=== PATIENT | male | born 1960 | race Caucasian/White ===

== ENCOUNTER 2016-09-16 15:41 | Emergency (ER) | payer OTHER ==
[2016-09-16 15:50] VITALS: BP 148/99; PULSE 78; RESP 16; TEMP 98.3; O2SAT 97
[2016-09-16] MEDS ORDERED: LISI-515 PO (15:56)
[2016-09-16 17:07] LABS: AUTOMATED NEUTROPHIL # 5.6 TH/MM3 (1.8-7.7); BASOPHIL # 0.2 TH/MM3 (0-0.2); BASOPHIL % 1.9 % (0.0-2.0); EOSINOPHIL # 0.1 TH/MM3 (0-0.4); EOSINOPHIL % 0.6 % (0.0-4.0); HEMATOCRIT 45.9 % (39.0-51.0); HEMO FLAGS DIFF FINAL; LYMPH % 23.1 % (9.0-44.0); LYMPHOCYTE # 2.1 TH/MM3 (1.0-4.8); MEAN CORPUSCULAR HEMOGLOBIN 28.9 PG (27.0-34.0); MEAN CORPUSCULAR HGB CONC 34.4 % (32.0-36.0); MONO % 12.3 % (0.0-8.0); NEUT % 62.1 % (16.0-70.0); PLATELET COUNT 197 TH/MM3 (150-450); RED BLOOD COUNT 5.46 MIL/MM3 (4.50-5.90); RED CELL DISTRIBUTION WIDTH 13.8 % (11.6-17.2)
[2016-09-16 17:21] LABS: ANION GAP 9 MEQ/L (5-15); AST (GOT) 11 U/L (15-37); BICARBONATE 26.1 MEQ/L (21.0-32.0); BLOOD UREA NITROGEN 13 MG/DL (7-18); CHLORIDE 100 MEQ/L (98-107); GLOMERULAR FILTRATION RATE 104 ML/MIN (>89); POTASSIUM 3.5 MEQ/L (3.5-5.1); SODIUM (NA) 135 MEQ/L (136-145)
[2016-09-16 17:25] LABS: ALKALINE PHOSPHATASE 81 U/L (45-117); ALT (GPT) 28 U/L (12-78); TOTAL BILIRUBIN ADULT 0.6 MG/DL (0.2-1.0)
--- NOTE | 2016-09-16 17:30 | RADRPT ---
EXAM DATE/TIME: 09/16/2016 17:22 [place] COMPARISON: No previous studies available for comparison. INDICATIONS : Facial droop. RADIATION DOSE: 42.16 CTDIvol (mGy) MEDICAL HISTORY : Hypertension. SURGICAL HISTORY : None. ENCOUNTER: Initial ACUITY: 1 day PAIN SCALE: 0/10 LOCATION: cranial TECHNIQUE: Multiple contiguous axial images were obtained of the head. Using automated exposure control and adj ustment of the mA and/or kV according to patient size, radiation dose was kept as low as reasonably a chievable to obtain optimal diagnostic quality images. FINDINGS: CEREBRUM: The ventricles are normal for age. No evidence of midline shift, mass lesion, hemorrhage or acute in farction. No extra-axial fluid collections are seen. POSTERIOR FOSSA: The cerebellum and brainstem are intact. The 4th ventricle is midline. The cerebellopontine angle i s unremarkable. EXTRACRANIAL: The visualized portion of the orbits is intact. SKULL: The calvaria is intact. No evidence of skull fracture. CONCLUSION: Negative noncontrast CT brain. Juan Dudley MD on September 16, 2016 at 17:27 Board Certified Radiologist. This report was verified electronically.
--- NOTE | 2016-09-16 17:45 | PD ---
HPI Chief Complaint: Neuro Symptoms/ Deficits Time Seen by Provider: 15:47 Travel History International Travel<30 days: No Contact w/Intl Traveler<30days: No Traveled to known affect area: No History of Present Illness HPI This is a 56-year-old male inmate brought in by the correctional facility guards for right sided facial droop. The patient states he was sprinting pain behind his right ear and above his ear 2 days ago. He states he woke up this morning with facial droop and difficulty closing his eye. The patient denies any weakness of his extremities. He did state that he thought he felt some numbness to his leg earlier but denies weakness. Denies any previous history of stroke. He does have a history of hypertension. There are no other complaints time my examination. [facility] Past Medical History Hypertension: Yes Past Surgical History Surgical History: No Previous Surgery Social History Alcohol Use: No Tobacco Use: Yes Substance Use: No Allergies-Medications (Allergen,Severity, Reaction): Coded Allergies: No Known Allergies (Unverified , 09/16/16) Reported Meds & Prescriptions Reported Meds & Active Scripts Active Valacyclovir (Valacyclovir HCl) 1 Gm Tab 1,000 Mg PO TID Prednisone 20 Mg Tab 60 Mg PO DAILY Reported Lisinopril Unknown Strength Tab Unknown Dose PO DAILY Review of Systems Except as stated in HPI: all other systems reviewed are Neg Eyes: Positive: Tearing, No: Blurred Vision, Visual changes (right eye) HENT: Positive: Other (right sided facial pain. Patient also complaining of pain above his right ear and behind his right ear.), No: Headaches, Lightheadedness Cardiovascular: No: Chest Pain or Discomfort, Irregular Rhythm Respiratory: No: Cough Gastrointestinal: No: Nausea, Vomiting, Abdominal Pain Musculoskeletal: No: Myalgias, Arthralgias, Weakness, Pain Neurologic: Positive: Focal Abnormalities (face droop), Other (right sided facial droop), No: Weakness, Syncope, Headache, Slurred Speech Physical Exam Narrative GENERAL: Well-developed well-nourished male with obvious right sided facial droop. SKIN: Focused skin assessment warm/dry. HEAD: Atraumatic. Normocephalic. EYES: Pupils equal and round. Patient does have a right eyelid droop. ENT: No nasal bleeding or discharge. Mucous membranes pink and moist. Patient has right lip droop. The patient has a vesicular rash to the right temporal scalp just above the right ear. On fluorescein staining of the right eye, there are no dendritic lesions appreciated. There is no uptake. There was no nasal lesions. On examination of his bilateral tympanic membranes, there was no evidence of vesicular lesions noted. NECK: Trachea midline. Supple. CARDIOVASCULAR: Regular rate and rhythm. No murmur appreciated. RESPIRATORY: No accessory muscle use. Clear to auscultation. Breath sounds equal bilaterally. GASTROINTESTINAL: Abdomen soft, non-tender, nondistended. Hepatic and splenic margins not palpable. MUSCULOSKELETAL: No obvious deformities. No clubbing. No cyanosis. No edema. NEUROLOGICAL: Awake and alert. Right sided facial droop with no for had sparing. Extremity motor and sensory exam are within normal limits. PSYCHIATRIC: Appropriate mood and affect; insight and judgment normal. Data Data Last Documented VS Vital Signs Date Time Temp Pulse Resp B/P Pulse Ox O2 Delivery O2 Flow Rate FiO2 09/16/16 16:20 Room Air 09/16/16 15:50 98.3 78 16 148/99 97 Orders Complete Blood Count With Diff (09/16/16 16:18) Comprehensive Metabolic Panel (09/16/16 16:18) Ct Brain W/O Iv Contrast(Rout) (09/16/16 16:18) Iv Access Insert/Monitor (09/16/16 16:18) Ecg Monitoring (09/16/16 16:18) Oximetry (09/16/16 16:18) Labs Laboratory Tests Test 09/16/16 16:10 White Blood Count 9.0 TH/MM3 Red Blood Count 5.46 MIL/MM3 Hemoglobin 15.8 GM/DL Hematocrit 45.9 % Mean Corpuscular Volume 84.0 FL Mean Corpuscular Hemoglobin 28.9 PG Mean Corpuscular Hemoglobin 34.4 % Concent Red Cell Distribution Width 13.8 % Platelet Count 197 TH/MM3 Mean Platelet Volume 8.8 FL Neutrophils (%) (Auto) 62.1 % Lymphocytes (%) (Auto) 23.1 % Monocytes (%) (Auto) 12.3 % Eosinophils (%) (Auto) 0.6 % Basophils (%) (Auto) 1.9 % Neutrophils # (Auto) 5.6 TH/MM3 Lymphocytes # (Auto) 2.1 TH/MM3 Monocytes # (Auto) 1.1 TH/MM3 Eosinophils # (Auto) 0.1 TH/MM3 Basophils # (Auto) 0.2 TH/MM3 CBC Comment DIFF FINAL Differential Comment Sodium Level 135 MEQ/L Potassium Level 3.5 MEQ/L Chloride Level 100 MEQ/L Carbon Dioxide Level 26.1 MEQ/L Anion Gap 9 MEQ/L Blood Urea Nitrogen 13 MG/DL Creatinine 0.78 MG/DL Estimat Glomerular Filtration 104 ML/MIN Rate Random Glucose 129 MG/DL Calcium Level 8.9 MG/DL Total Bilirubin 0.6 MG/DL Aspartate Amino Transf 11 U/L (AST/SGOT) Alanine Aminotransferase 28 U/L (ALT/SGPT) Alkaline Phosphatase 81 U/L Total Protein 7.7 GM/DL Albumin 3.9 GM/DL MDM Medical Decision Making Medical Screen Exam Complete: Yes Emergency Medical Condition: Yes Interpretation(s) Last [address] 09/16/16 1618 Signed Impressions: Service Date/Time: Friday, September 16, 2016 17:22 - CONCLUSION: Negative noncontrast CT brain. Juan Dudley MD Differential Diagnosis Hathaway's palsy versus TIA versus CVA Narrative Course 56-year-old male who presents with right sided facial droop. The patient 2 days ago noticed pain in his right posterior and superior auricular area. The patient has a vesicular rash noted to his right scalp above his ear. TMs show no vesicular lesions. The tip of his nose shows no vesicular lesions. Fluorescein staining shows no uptake in his right eye. The patient has no sparing of his forehead with a facial droop. This is Hathaway's palsy clinically. Since he did have questionable numbness to his right leg, a CT scan was ordered which shows no evidence of acute process. He will be treated with prednisone and valacyclovir. Diagnosis Primary Impression: Hathaway's palsy Additional Impression: History of hypertension Additional Instructions: Saline eyedrops to right eye for dryness. Follow up with neurologist if symptoms persist. Med/Other Pt SpecificInfo: Prescription(s) given Scripts Valacyclovir 1 Gm Tab1,000 Mg PO TID #21 TAB Ref 0 Prov:Yuniel Palma MD 09/16/16 Prednisone 20 Mg Tab60 Mg PO DAILY #21 TAB Ref 0 Prov:Yuniel Palma MD 09/16/16 Disposition: 01 DISCHARGE HOME Condition: Stable Yuniel Palma MD Sep 16, 2016 17:45
[2016-09-16] MEDS ORDERED: PRED20 PO (17:47)
[2016-09-16] MEDS ORDERED: VALA1TAB PO (17:47)
[2016-09-16] MEDS ORDERED: IBUPROFEN 800 MG TAB PO ONE (18:00)
== END 2016-09-16 18:16 | disposition home or self-care (01) ==
LOC: NEPE 15:41
DX: G51.0 Bell's palsy (principal); R51 Headache; R20.0 Anesthesia of skin; R21 Rash and other nonspecific skin eruption; I10 Essential (primary) hypertension; Z72.0 Tobacco use
CPT/HCPCS: 70450; 80053; 85025